=== PATIENT | male | born 1985 | race Caucasian/White ===

== ENCOUNTER 2020-04-10 09:49 | Emergency (ER) | payer OTHER ==
[~2020-04-10] VITALS: Ht 172.7 cm; Wt 97.7 kg
[2020-04-10 09:50] VITALS: BP 138/76
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
[2020-04-10] MEDS ORDERED: ORPH100T PO (11:21)
[2020-04-10] MEDS ORDERED: HYDR-3164 PO (11:21)
[2020-04-10] MEDS ORDERED: AZIT250T6 PO (11:21)
== END 2020-04-10 11:32 | disposition home or self-care (01) ==
LOC: ER 09:49
DX: S30.0XXA Contusion of lower back and pelvis, initial encounter (principal); R07.81 Pleurodynia; X58.XXXA Exposure to other specified factors, initial encounter; Y93.89 Activity, other specified; Y92.89 Other specified places as the place of occurrence of the external cause; Y99.8 Other external cause status
CPT/HCPCS: 71101; 99283